=== PATIENT | female | born 1980 | race Caucasian/White ===

== ENCOUNTER 2023-01-02 02:18 | Emergency (ER) | payer MEDICAID ==
[~2023-01-02] VITALS: Ht 154.9 cm; Wt 81.6 kg
--- NOTE | 2023-01-02 02:55 | NUR ---
BIBS. SORATHROAT, CHEST PAIN AND COUGH W/ PHLEGM X 4 DAYS. TAKEN COUGH MEDS WITHOUT RELIEF. PATIENT IS AAOX4. ABLE TO MAKE NEEDS KNOWN.+ BILATERAL LUNG WHEEZING. PLACED COMFORTABLY IN BED. VITALS CHECKED.
--- NOTE | 2023-01-02 03:00 | NUR ---
RT CALLED FOR NEBULIZATION TREATMENT
--- NOTE | 2023-01-02 03:08 | NUR ---
COVID, INFLUENZA, AND STREP SWAB DONE AND SENT TO LAB
--- NOTE | 2023-01-02 03:08 | NUR ---
CORD CUTTER AT BEDSIDE
[2023-01-02] MEDS ORDERED: ALBUTEROL FS 2.5 MG/0.5 ML VIAL.NEB ONE (03:14)
--- NOTE | 2023-01-02 03:21 | NUR ---
NEB TREATMENT HAPPENED.
[2023-01-02] MEDS ORDERED: ALBUTEROL FS 2.5 MG/0.5 ML VIAL.NEB NEB ONE (03:30)
[2023-01-02] MEDS ORDERED: PRED50TA PO (04:22)
[2023-01-02] MEDS ORDERED: ALBU8.5H8 INH (04:22)
--- NOTE | 2023-01-02 04:29 | NUR ---
Patient discharged to home in stable condition. Written and verbal after care instructions given. Patient verbalizes understanding of instruction. Pt ambulatory with a steady gait
[2023-01-02 04:30] VITALS: BP 128/89
== END 2023-01-02 04:32 | disposition home or self-care (01) ==
LOC: ER 02:21
DX: J45.901 Unspecified asthma with (acute) exacerbation (principal); R07.89 Other chest pain; R05.9 Cough, unspecified; E78.5 Hyperlipidemia, unspecified; Z98.890 Other specified postprocedural states; Z79.899 Other long term (current) drug therapy; Z88.1 Allergy status to other antibiotic agents; Z20.822 Contact with and (suspected) exposure to COVID-19
CPT/HCPCS: 99284; 71045; 87426; 87804 ×2; 87880; 94640; C9803; 86403-TC